=== PATIENT | female | born 1960 | race African-American/Black ===

== ENCOUNTER 2021-12-14 19:47 | Emergency (ER) | payer OTHER ==
[~2021-12-14] VITALS: Ht 167.6 cm; Wt 81.6 kg
[2021-12-14] MEDS ORDERED: IPRATROPIUM BROM 0.5 MG/2.5ML INH SOL NEB ONE ×2 (20:15→23:45)
[2021-12-14] MEDS ORDERED: ALBUTEROL SULF 2.5 MG/0.5ML(0.5%) NEB SOLN NEB ONE ×2 (20:15→23:45)
[2021-12-14 20:46] LABS: Basophils # (auto) 0 10 ^3/uL (0-0.2); Basophils % (auto) 0.5 % (0.0-2.0); Eosinophils # (auto) 0.6 10 ^3/uL (0-0.8); Eosinophils % (auto) 6.9 % (0.0-7.0); Hematocrit 34.2 % (36.0-46.0); Hemoglobin 11.7 g/dL (12.2-16.2); Lymphocytes # (auto) 2.6 10 ^3/uL (0.4-5.4); Lymphocytes % (auto) 29.2 % (10.0-50.0); Mean Corpuscular Hemoglobin 27.2 pg (28.0-32.0); Mean Corpuscular Hgb Conc. 34.1 g/dL (32.0-36.0); Mean Corpuscular Volume 79.6 fL (80.0-100.0); Monocytes # (auto) 0.8 10 ^3/uL (0-1.3); Monocytes % (auto) 9.5 % (0.0-12.0); Neutrophils # (auto) 4.7 10 ^3/uL (1.6-8.6); Neutrophils % (auto) 53.9 % (37.0-80.0); Nucleated Red Blood Cells % 0.2 %; Red Blood Cells 4.29 10^6/uL (4.0-5.20); Red Cell Distribution Width 17.8 % (11.8-14.3); White Blood Cell 8.8 10^3/uL (4.4-10.8)
[2021-12-14 21:03] LABS: Albumin 3.7 g/dL (3.4-5.0); Calcium 8.3 mg/dL (8.5-10.1); Potassium 3.8 mmol/L (3.5-5.1)
[2021-12-14 21:05] LABS: BUN/Creatinine Ratio 11.8
[2021-12-14 21:07] LABS: Bilirubin, Total 0.4 mg/dL (0.2-1.0)
[2021-12-14] MEDS: HYDROcodone-ACET 5/325MG TAB PO ONE ×2 (22:04→23:49)
[2021-12-14] MEDS ORDERED: IBUP800T27 PO (22:47)
[2021-12-14] MEDS ORDERED: LEVO500T31 PO (22:47)
[2021-12-15 00:36] VITALS: BP 134/93
== END 2021-12-15 00:39 | disposition home or self-care (01) ==
LOC: ER 20:01
DX: S73.102A Unspecified sprain of left hip, initial encounter (principal); J45.901 Unspecified asthma with (acute) exacerbation; J06.9 Acute upper respiratory infection, unspecified; I10 Essential (primary) hypertension; F17.200 Nicotine dependence, unspecified, uncomplicated; Z88.0 Allergy status to penicillin; Z20.822 Contact with and (suspected) exposure to COVID-19; X58.XXXA Exposure to other specified factors, initial encounter; Y93.89 Activity, other specified; Y92.89 Other specified places as the place of occurrence of the external cause; Y99.8 Other external cause status
CPT/HCPCS: 36415; 71250; 73501; 74176; 80053; 83880; 84484; 85025; 87426; 93005; 94640; 99285; J7644

== ENCOUNTER 2021-12-24 21:32 | Emergency (ER) | payer OTHER ==
[~2021-12-24] VITALS: Ht 167.6 cm; Wt 95.3 kg
[~2021-12-24 21:32] MED LIST: IBUP800T27 PO; LEVO500T31 PO
[2021-12-24 22:29] VITALS: BP 153/88
[2021-12-24] MEDS ORDERED: LEVO-28 PO (22:47)
== END 2021-12-24 23:48 | disposition home or self-care (01) ==
LOC: ER 21:32
DX: H66.93 Otitis media, unspecified, bilateral (principal); I10 Essential (primary) hypertension; F17.200 Nicotine dependence, unspecified, uncomplicated